=== PATIENT | male | born 1970 | race Caucasian/White ===

== ENCOUNTER 2020-01-17 02:14 | Outpatient (CLI) | payer BC, SELFPAY ==
[2020-01-17 18:46] LABS: SARS-CoV-2 RNA PCR Negative
== END 2020-01-17 02:15 | disposition home or self-care (01) ==
LOC: ANHCOVIDDT 02:15
PROVIDERS: PCP Internal Medicine; Visit Provider Internal Medicine Gastroenterology
DX: Z01.818 Encounter for other preprocedural examination (principal); Z20.828 Contact with and (suspected) exposure to other viral communicable diseases
CPT/HCPCS: 87635; C9803; U0003

== ENCOUNTER 2020-01-20 00:39 | Day surgery (SDC) | payer BC, SELFPAY ==
[2020-01-10 11:22] VITALS: BMI 35.2
[2020-01-20 07:11] VITALS: BP 157/95; PULSE 97; RESP 18; TEMP 36.6; O2SAT 97
[2020-01-20] MEDS: LACTATED RINGERS 1,000 ML 150 ML IV CONT (07:16)
--- NOTE | 2020-01-20 07:40 | P.PNAN_ITS ---
Anes - Initial Pre Proc Eval Procedure: Operation Date: 01/20/20 08:30 Proposed Procedures p Screening Colonoscopy - Eduard Bañuelos MD Date/Time: 01/20/20 07:40 Surgeon: Eduard Bañuelos MD Pre Op Diagnosis: Neoplasm Screening Patient Data Age: 49 Gender: M Height: 5 ft 8 in Weight: 107.1 kg Last Vital Signs Temp 36.6 C 01/20/20 07:11 Pulse 97 01/20/20 07:11 Resp 18 01/20/20 07:11 BP 157/95 H 01/20/20 07:11 Pulse Ox 97 01/20/20 07:11 Allergies Allergy/AdvReac Type Severity Reaction Status Date / Time No Known Allergies Allergy Verified 01/20/20 07:10 Home Medications Medication Instructions Recorded Confirmed Type atorvastatin 40 mg PO DAILY 01/10/20 01/10/20 History quinapril 20 mg PO DAILY 01/10/20 01/10/20 History sertraline 100 mg PO DAILY 01/10/20 01/10/20 History Patient hx anesthesia problems: none Family hx anesthesia problems: none [facility] Past Medical History Medical History (Updated 01/20/20 @ 07:43 by Randell Adam MD) Depression HTN (hypertension) Hyperlipidemia Obesity Social History Social History Smoking packs per day: 1 Smoking cigarettes per day: 20.0 Years smoked: 10 Smoking pack-years: 10.00 Smoking status: Former smoker Tobacco type: cigarettes Alcohol intake: current Drinks per week: 24 Substance use type: does not use Living arrangements: with family Spiritual care concerns: No Anes - Eval Final PreProcedure Day of Procedure 01/20/20 07:40 Patient weight: obese Heart: regular rate and rhythm Lungs: clear to auscultation Airway: Mallampati scale class II Neurological: alert and oriented Last oral intake: >/= 8 hours ASA classification: III Emergent: no Anesthetic plan: proceed Anesthesia type and monitoring: general GIVS and standard monitoring Informed Consent: The patient's anesthetic plan and its attendant risks and benefits were discussed with the patient/family/POA. Questions were solicited a nd answers provided to the satisfaction of the patient/family/POA.
--- NOTE | 2020-01-20 07:57 | P.CONGI_ITS ---
Assessment and Plan Assessment and plan (1) Encounter for screening colonoscopy: Code(s): Z12.11 - Encounter for screening for malignant neoplasm of colon Status: Acute Assessment and Plan: Patient appears to be at average risk for colon polyps. Because of patient's age screening colonoscopy will be performed at this time. GI Consult Note Consult date/time: 01/20/20 07:57 HPI: Eric Adorno II is a 49 year old male Seen in evaluation at the request of Dr. Ray Rivera. Patient presents for screening exam screening colonoscopy. Patient's current weight appetite bowel movements are normal. He denies abdominal pain. He has had no bleeding. His family history is noncon tributory. Review of Systems Review of Systems: All systems reviewed & are unremarkable except as noted in HPI and below PMFSH Past Medical History Medical History (Updated 01/20/20 @ 07:58 by Eduard Bañuelos MD) Depression HTN (hypertension) Hyperlipidemia Obesity Social History Social History Smoking packs per day: 1 Smoking cigarettes per day: 20.0 Years smoked: 10 Smoking pack-years: 10.00 Smoking status: Former smoker Tobacco type: cigarettes Alcohol intake: current Drinks per week: 24 Substance use type: does not use Living arrangements: with family Spiritual care concerns: No Meds Home Medications and Allergies Home Medications Medication Instructions Recorded Confirmed Type atorvastatin 40 mg PO DAILY 01/10/20 01/10/20 History quinapril 20 mg PO DAILY 01/10/20 01/10/20 History sertraline 100 mg PO DAILY 01/10/20 01/10/20 History Allergies Allergy/AdvReac Type Severity Reaction Status Date / Time No Known Allergies Allergy Verified 01/20/20 07:10 Vital Signs Vital Signs - 24 hr 01/20/20 07:11 Temperature 97.8 F Pulse Rate 97 Respiratory Rate 18 Blood Pressure 157/95 H Pulse Oximetry 97 Exam Narrative: Exam Narrative: Physical exam reveals patient to be alert. Vital signs stable. HEENT exam is unremarkable. Lungs are clear to auscultation and percussion. Heart is without murmur or extra sounds. Abdominal exam bowel sounds are present soft nontender with no organomegaly. Digital external rectal exam is normal.
[2020-01-20 08:49] VITALS: BP 120/82; PULSE 91; RESP 14; O2SAT 96
[2020-01-20 08:59] VITALS: BP 121/83; PULSE 90; RESP 17; O2SAT 96
[2020-01-20 09:09] VITALS: BP 136/95; PULSE 88; RESP 19; O2SAT 97
== END 2020-01-20 09:19 | disposition home or self-care (01) ==
PROVIDERS: PCP Internal Medicine; Visit Provider Internal Medicine Gastroenterology
PROC: 0DJD8ZZ Inspection of Lower Intestinal Tract, Via Natural or Artificial Opening Endoscopic (ICD-10-PCS; CPT 45378; principal; 2020-01-20 08:30)
DX: Z12.11 Encounter for screening for malignant neoplasm of colon (principal); D12.5 Benign neoplasm of sigmoid colon; F32.9 Major depressive disorder, single episode, unspecified; I10 Essential (primary) hypertension; E78.5 Hyperlipidemia, unspecified; E66.9 Obesity, unspecified; Z68.35 Body mass index [BMI] 35.0-35.9, adult; Z87.891 Personal history of nicotine dependence; K64.8 Other hemorrhoids
CPT/HCPCS: 45385; 88305; J2704; J7120

== ENCOUNTER → 2020-11-20 08:14 | Outpatient (CLI) | payer OTHER, BC, SELFPAY ==
--- NOTE | ~2020-11-20 | MR_ITS ---
EXAMINATION: MR lumbar spine wo con EXAM DATE: 11/20/2020 09:18 INDICATION: Radiculopathy, lumbar region chronic lbp. Right leg pain right toe tingling/numbness s/ p. TECHNIQUE: Multi-sequential, multiplanar MR images of the lumbar spine were obtained without contrast . Sagittal T1, T2, T2 fat saturation images. Axial T2 weighted images. There is no prior study for comparison. FINDINGS: There is mild to moderate disc disease L3-4 and L4-5, mild at the other levels. There is 2 mm retrolisthesis L3 on L4 and L4 on L5 and L5 on S1. The conus medullaris terminates at the L1/2 lev el and has normal signal intensity and morphology. There are no suspicious marrow signal abnormalitie s. Paraspinal soft tissue is unremarkable. Level by level evaluation: T12-L1: Disc does not extend beyond the endplate margin. Facet arthropathy: Mild. Neural foraminal stenosis: No stenosis. Central canal stenosis: No stenosis. L1-L2: Disc does not extend beyond the endplate margin. Facet arthropathy: Mild. Neural foraminal stenosis: No stenosis. Central canal stenosis: No stenosis. L2-L3: There is a minimal diffuse disc bulge. Facet arthropathy: Moderate . Ligamentum flavum enlargement. Neural foraminal stenosis: No stenosis. Central canal stenosis: No stenosis. L3-L4: There is a mild to moderate diffuse disc bulge. Facet arthropathy: Moderate. Neural foraminal stenosis: Mild to moderate bilateral. Central canal stenosis: Mild. L4-L5: There is a mild to moderate diffuse disc bulge with superimposed small right central extrusion , inferior migration into the lateral recess and right L5-S1 neural foramina. Facet arthropathy: Moderate. Neural foraminal stenosis: Moderate bilateral. Central canal stenosis: Moderate. L5-S1: There is a mild diffuse disc bulge. Facet arthropathy: Mild to moderate. Neural foraminal stenosis: At least moderate right, mild to moderate left. Central canal stenosis: Mild. IMPRESSION: 1. L4-5 moderate stenosis, and right central extrusion with inferior migration into the lateral rece ss and the right L5-S1 neural foramina. 2. Less spondylosis other levels. Reviewed, dictated and finalized at location B. IMPRESSION: 1. L4-5 moderate stenosis, and right central extrusion with inferior migration into the lateral recess and the right L5-S1 neural foramina. 2. Less spondylosis other levels.
== END ==
PROVIDERS: PCP Internal Medicine; Visit Provider Physician Assistant Medical
DX: M47.26 Other spondylosis with radiculopathy, lumbar region (principal)
CPT/HCPCS: 72148

== ENCOUNTER 2021-11-10 01:58 | Day surgery (SDC) | payer OTHER, SELFPAY ==
[2021-11-08 08:26] VITALS: BMI 37.2
--- NOTE | 2021-11-08 08:32 | PC.NURSE ---
Report to the Outpatient Waiting Room, entrance under the green pavilion located off [facility], at time 0600 on date 11/10/21. OR Time: 0730. Time changes happen often and if your time is changed the preop area will call you the afternoon before. - You and your visitor will be asked to self-screen and do not enter if you have any COVID symptoms. - Only one visitor and NO children visitors are allowed at this time. - The patient visitor is requested to leave or wait in car when not with patient due to restrictions. - A mask is required within the hospital. Patients may have clear liquids (water, carbonated beverages, clear teas, apple juice) until 3 hours prior to surgery with a maximum of 20 ounces. - No food from midnight until time of surgery Take the following medications with a SIP of water the morning of surgery: SERTRALINE, PREDNISONE Medications to discontinue per physician: N/A Date to take last dose: N/A Please no make-up, nail south korean, hairspray, perfume, deodorant, or body powder the day of surgery. No jewelry (including any body piercings) or valuables the day of surgery, leave them at home. Please take a shower or bath the night before, or the morning of, surgery with an antibacterial soap. Wear comfortable, loose fitting clothing. - Jewelry must be removed prior to entering the operating room. Rings and piercings that are not removed may be cut off. - The hospital will not accept responsibility for valuables. - Please leave all valuables, including medications, at home the day of surgery. If you are going home after surgery, a licensed driver material handler must drive you home. - NO public transportation without another adult. - We recommend that an adult stay with you for 24 hours following discharge. - We also recommend that you do not drive, make important decision, drink alcoholic beverages, or take any drugs that were not prescribed by your health care provider for at least 24 hours after your discharge time. Follow any additional instructions given to you from your surgeon. If you or anyone in your household have experienced Covid symptoms in the past week, please notify your surgeon or the nurse liaison at the phone number below for possible testing. Telephone instructions given to PT - ESME FLETCHER and asked if any additional questions and then verbalized understanding. Patient advised to call surgeon office or pre surgery nurse liaison [phone] if any additional questions.
--- NOTE | 2021-11-08 19:35 | PM.SD2 ---
Same Day Admit/Disch: HPI History of Present Illness Chief complaint: Periumbilical ventral hernia Narrative: Eric Adorno II is a 51 year old male with a bulge in the lower aspect umbilicus. He was seen in the office and noted to have a periumbilical ventral hernia. The skin is dusky and the hernia is too large and tender to reduce. He is taken to surgery now for repair with mesh. [facility], [facility] Past Medical History Medical History Depression HTN (hypertension) Hyperlipidemia Obesity Surgical History Surgical History H/O vasectomy Family History Family History Father Heart disease Hypertension Non-Hodgkin lymphoma Social History Social History (Updated 11/03/21 @ 10:09 by Coco Mitchell MA) Social History: caffeine use- 1 cup of coffee per day Smoking packs per day: 1 Smoking cigarettes per day: 20.0 Years smoked: 7 Smoking pack-years: 7.00 Smoking status: Former smoker Tobacco type: cigarettes Smoking end date: 02/06/01 Alcohol intake: current Drinks per week: 12 Alcohol use details: social use-Beer Substance use: never Substance use type: does not use Living arrangements: with family Additional living arrangements comments: Patient is 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 Gender identity (if verbalized by the patient): Male Sexual Orientation (if Verbalized by the Patient): Straight or Heterosexual Spiritual care concerns: No Same Day Admit/Disch: Med Pre-admit Medications Home Medications Medication Instructions Recorded Confirmed Type atorvastatin 40 mg tablet 40 mg PO DAILY 01/10/20 11/10/21 History quinapril 20 mg tablet 20 mg PO DAILY 01/10/20 11/10/21 History sertraline 100 mg tablet 100 mg PO DAILY 01/10/20 11/10/21 History hydrocodone 5 mg-acetaminophen 325 1 - 2 tablet PO Q6H PRN pain #15 11/10/21 Rx mg tablet tabs ketorolac 10 mg tablet 10 mg PO Q6H 4 days #16 tabs 11/10/21 Rx Exam Const: General: comfortable, no acute distress, alert and awake HENMT: Head: normocephalic and atraumatic Mouth: Yes Normal oral and palatal mucosa present Eyes: Conjunctivae: conjunctivae normal Pupils: Equal, round and reactive pupils present EOM: EOMs intact bilaterally Neck: Neck: normal visual inspection, no lymphadenopathy and nontender Resp: Effort & Inspection: normal respiratory effort Auscultation: clear to auscultation bilaterally Cardio: Rate: regular rate Rhythm: regular rhythm Heart sounds: no gallops, no murmurs and no rubs GI: Inspection: non-distended, obesity and visible herniation (below and at umbilicus, dusky skin) GI Palp: Yes Soft to palpation, Yes Tenderness to palpation present (GI), No Hepatomegaly present, No Splenomegaly present and Yes Hernia present (unable to reduce, tender) Skin: Lesions: no lesions Rashes: no rashes Neuro: General: no focal motor deficits and CN's II-XI intact bilaterally Cranial nerves: Yes Equal, round and reactive pupils present, Yes Bilaterally intact EOM present, Yes facial symmetry and Yes Midline tongue present Speech: normal speech Motor exam (neuro): 5/5 motor strength present throughout and Motor abnormalities not present Extrem: General: no clubbing, cyanosis or edema and edema Psych: Affect: normal affect Thought process: Normal thought process present Insight: Good insight present (Psych) DS: Summary Time Spent with Patient Time attestation: Total time spent providing and/or coordinating discharge services: DS: Admitting Diagnosis Discharge Date 11/10/21 Admitting Diagnosis periumbilical ventral hernia--plan to repair with underlay mesh. Procedure, risks, benefits discussed. He agrees to go ahead. obesity HTN DS: Discharge Diagnosis Discharge Diagnosis (1) Ventral hernia:
--- NOTE | 2021-11-09 14:04 | P.PNAN_ITS ---
Anes - Initial Pre Proc Eval Procedure: Operation Date: 11/10/21 07:30 Proposed Procedures p Repair of PeriUmbilical Ventral Hernia with Mesh - Derick Franklin MD Date/Time: 11/09/21 14:04 Surgeon: Derick rFanklin MD Pre Op Diagnosis: Periumbilical ventral hernia Patient Data Age: 51 Gender: M Height: 1.73 m Weight: 111.13 kg Allergies Allergy/AdvReac Type Severity Reaction Status Date / Time No Known Allergies Allergy Verified 11/10/21 06:39 Home Medications Medication Instructions Recorded Confirmed Type atorvastatin 40 mg tablet 40 mg PO DAILY 01/10/20 11/10/21 History quinapril 20 mg tablet 20 mg PO DAILY 01/10/20 11/10/21 History sertraline 100 mg tablet 100 mg PO DAILY 01/10/20 11/10/21 History Patient hx anesthesia problems: none Family hx anesthesia problems: none Results Review: All pre-operative results and documents have been reviewed as part of the pre- operative evaluation. [facility] Past Medical History Medical History Depression HTN (hypertension) Hyperlipidemia Obesity Surgical History Surgical History H/O vasectomy Family History Family History Father Heart disease Hypertension Non-Hodgkin lymphoma Social History Social History (Updated 11/03/21 @ 10:09 by Coco Mitchell MA) Social History: caffeine use- 1 cup of coffee per day Smoking packs per day: 1 Smoking cigarettes per day: 20.0 Years smoked: 7 Smoking pack-years: 7.00 Smoking status: Former smoker Tobacco type: cigarettes Smoking end date: 02/06/01 Alcohol intake: current Drinks per week: 12 Alcohol use details: social use-Beer Substance use: never Substance use type: does not use Living arrangements: with family Additional living arrangements comments: Patient is 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 Gender identity (if verbalized by the patient): Male Sexual Orientation (if Verbalized by the Patient): Straight or Heterosexual Spiritual care concerns: No Anes - Eval Final PreProcedure Day of Procedure 11/09/21 14:04 Patient weight: obese Heart: regular rate and rhythm Lungs: clear to auscultation Airway: Mallampati scale class II Neurological: alert and oriented Last oral intake: >/= 8 hours ASA classification: III Emergent: no Anesthetic plan: proceed Anesthesia type and monitoring: general ETT and standard monitoring Results Review: All pre-operative results and documents have been reviewed as part of the pre- operative evaluation. Informed Consent: The patient's anesthetic plan and its attendant risks and benefits were discussed with the patient/family/POA. Questions were solicited and answers provided to the satisfaction of the patient/family/POA.
[2021-11-10] VITALS (8 sets, daily range): BP systolic 129–155; BP diastolic 84–108; PULSE 81–98; RESP 12–18; TEMP 36.2–36.4; O2SAT 94–100
[2021-11-10] MEDS: LACTATED RINGERS 1,000 ML 30 ML IV CONT ×2 (06:29→08:52)
[2021-11-10] MEDS: ACETAMINOPHEN 500 MG TABLET 1000 MG PO (06:30)
[2021-11-10] MEDS: KETOROLAC 15 MG/ML VIAL (*BKC) IV PUSH (06:30)
--- NOTE | 2021-11-10 07:18 | WPDHPUPDATE1 ---
History and Physical Update Update Date/Time: 11/10/21 07:18 History and Physical has been reviewed, including an updated exam of the patient. There are NO changes in the patient's condition. Risks, benefits, and alternatives have been discussed and questions answered. Patient agrees to proceed with procedure.
[2021-11-10] MEDS: ceFAZolin 2 GM/D5W 50 ML 2 GM/50 ML BAG IVPB (07:28)
[2021-11-10] MEDS: BUPIVACAINE/EPINEPHRINE 0.25% 50 ML VIAL INFILTRATE (08:40)
--- NOTE | 2021-11-10 09:16 | P.OP_ITS ---
Procedure Note - Detailed Date of Procedure 11/10/21 Pre-op Diagnosis Periumbilical ventral hernia Post-op Diagnosis Other (Ventral and umbilical hernias) Procedure Performed Repair ventral and umbilical hernias with 8.[address] underlay mesh Surgeon Derick Franklin MD Ergonomic Specialist Servando Roy, SHIVA Anesthesia General and Local (0.25% Marcaine with epinephrine) Indications Patient noted to have a bulge at the umbilicus and below the umbilicus. It was too tender to reduce. It has been getting bigger. He is taken to surgery now for repair Findings Patient had a ventral hernia as well as a smaller umbilical hernia. Connecting the 2, the 8.6 cm mesh was required. Description of Procedure Patient was taken to surgery and anesthesia was introduced. The abdomen was prepped and draped. The proposed incision was drawn along the upper margin of the umbilicus. Local was infiltrated in the area of the anticipated incision and in the subcutaneous. Patient was having some difficulty with anesthesia under sedation. An LMA was attempted but would not seat well. He was converted then to the general with endotracheal anesthesia. We continued the surgery and dissected out the hernia and noted also umbilical hernia as well. The ventral hernia was actually a just a little to the right of the umbilical hernia. We dissected the hernia sacs from each. The umbilical skin was dissected free from the subcutaneous and from the hernia sac. The hernia sacs were discarded. I divided the fascial bridge between the 2 hernia defects. I placed a finger in the abdomen and checked for any adhesions. There were none. I infiltrated additional local in the fascia all around the hernia defect. An 8.6 cm mesh was then placed in the abdomen. Cranial and caudal transfascial sutures were placed with 0 Ethibond. The split sutures were placed in such a fashion that they would advance the edges of the hernia defect towards 1 another. After being tied down, the sutures had the desired effect. I then placed right and left lateral transfascial sutures to secure the mesh in the lateral aspect as well. I then closed the hernia defect with [id number] mattress sutures of 0 Ethibond. Each of these sutures also included a bit of mesh. The repair looked good. I then suture the umbilical skin back to the fascia. Some subcutaneous 3-0 Vicryl sutures were placed as well. The skin was approximated loosely with 3-0 and 4-0 subcuticular interrupted Vicryl suture. The skin was finally closed with a running 4-0 Monocryl skin suture. The wound was dressed with Exofin aleman rgical adhesive. The patient was then awakened and taken to recovery in good condition. Sponge needle counts were correct x2. Implants 8.[address] mesh patch Estimated Blood Loss -5.0 Drains No Packing No Pathology None sent Complications No immediate complications Condition Stable Disposition PACU [facility] Billing Surgery - Charge Forward: Surgery Billing (Repair ventral and umbilical hernias with mesh.)
== END 2021-11-10 10:50 | disposition home or self-care (01) ==
PROVIDERS: PCP Physician Assistant Medical; Visit Provider Surgery
PROC: (CPT 49560; principal; 2021-11-10 07:30)
DX: K43.9 Ventral hernia without obstruction or gangrene (principal); K42.9 Umbilical hernia without obstruction or gangrene; F32.A Depression, unspecified; E78.5 Hyperlipidemia, unspecified; Z87.891 Personal history of nicotine dependence; E66.9 Obesity, unspecified; Z68.37 Body mass index [BMI] 37.0-37.9, adult; I10 Essential (primary) hypertension
CPT/HCPCS: 49560; 49568; A9270; C1781; J0330; J0690; J1885; J2250; J2405; J2704; J3010; J7120

== ENCOUNTER 2022-05-11 08:44 | Outpatient (CLI) | payer OTHER, SELFPAY ==
--- NOTE | 2022-06-06 10:21 | WPDSLEEPSTUD ---
Sleep Study Date of Study: 05/11/22 Ordering Provider: Holly Berry PA-C Interpreting Physician: Julia Herman, DO Sleep Study Type: CPAP Titration Height: 1.73 m Weight: 112.491 kg Body Mass Index: 37.7 Neck Circumference (inches): 19 [place]: 12 Reason for Sleep Study RAÚL on PAP. Nocturnal oximetry showed hypoxemia. Needs new study prior to adding supplemental oxygen Sleep History The patient is a 52-year-old male with anxiety, depression, hypertension, hyperlipidemia, obesity, history of tobacco use and RAÚL on CPAP that had a sleep study ordered due to nocturnal hypoxemia while on CPAP. 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 He rarely awakens from sleep short of breath. He rarely awakens at night with heartburn, belching or cough. He constantly snores loudly enough others complain. He rarely has trouble sleeping when he has a cold. He rarely wakes up gasping for air throughout the night. He occasionally has breathing problems at night observed by himself or others. He denies sweating excessively at night. He denies having heart palpitations or irregular heartbeats during the night. He rarely falls asleep during the day and rarely falls asleep while driving. He denies sleep paralysis, cataplexy and hypnagogic / hypnopompic hallucinations. He denies having trouble at school or work due to sleepiness. He denies feeling afraid of going to sleep. He rarely has nightmares. He rarely remembers his dreams. He rarely has thoughts racing through his mind. He denies feeling sad or depressed. He occasionally has anxiety. He rarely has muscular tension. He rarely notices parts of his body jerk. He rarely kicks during the night. He denies having crawling and aching feelings in his legs and denies having leg pain during the night. He denies grinding his teeth during sleep and denies awakening with morning jaw pain. He is occasionally bothered by pain during the day but rarely awakened by pain during the night. He occasionally wakes up feeling stiff in the morning. He occasionally wakes up with sore achy muscles. He occasionally wakes up with pain in the neck, spine or other joints. He goes to bed at 8:30 p.m. on weekdays and at 9:00 p.m. on the weekends. It takes him 15 minutes to fall asleep. He will wake up once at most throughout the night to urinate and is able to fall back asleep within 10 minutes. He wakes up at 6:00 a.m. on both weekdays and weekends. He typically gets 7-9 hours of sleep per night. He will stay in bed for 5 minutes after waking up in the morning. He currently lives with his and children. He does not consume any caffeinated beverages within 2 hours of bedtime. He does not engage in physical exercise before bedtime. He will watch television before falling asleep. He denies taking naps in the afternoon or the evening. He drinks 2 cups of coffee per day. He quit smoking cigarettes 20 years ago. He consumes 6 alcoholic beverages per day. He denies recreational drug use. [facility] Past Medical History Medical History Anxiety Depression HTN (hypertension) Hyperlipidemia Hypoxemia associated with sleep Obesity RAÚL (obstructive sleep apnea) Surgical History Surgical History H/O vasectomy H/O ventral hernia repair Periumbilical Ventral Hernia repair w/ mesh on 11/10/21 Family History Family History Father Heart disease Hypertension Non-Hodgkin lymphoma Social History Social History Social History: caffeine use- 1 cup of coffee per day Smoking packs per day: 1 Smoking cigarettes per day: 20.0 Years smoked: 7 Smoking pack-years: 7.00 Smoking status: Former smoker Tobacco type: cigarettes Smoking end date: 02/06/01 Alcohol intake:
[2022-06-06 10:34] VITALS: BMI 37.7
== END 2022-05-12 06:46 | disposition home or self-care (01) ==
LOC: ANHCSM 08:45
PROVIDERS: PCP Physician Assistant Medical; Visit Provider Physician Assistant Medical
DX: G47.33 Obstructive sleep apnea (adult) (pediatric) (principal); G47.36 Sleep related hypoventilation in conditions classified elsewhere; I10 Essential (primary) hypertension; E66.9 Obesity, unspecified; Z68.37 Body mass index [BMI] 37.0-37.9, adult; Z87.891 Personal history of nicotine dependence
CPT/HCPCS: 95811

== ENCOUNTER 2024-07-15 08:21 | Outpatient (CLI) | payer OTHER, SELFPAY ==
--- NOTE | ~2024-07-15 | MR_ITS ---
MRI of the left knee Clinical history: Pain Technique: Coronal proton density and proton density-weighted images, sagittal proton-density and T2 fat-sat images, and axial proton-density fat-saturated images were acquired. Findings: Anterior and posterior cruciate ligaments are intact. Medial collateral ligament and the la teral collateral ligament complex are intact. Popliteus tendon is intact. There is complex tearing of the body segment, probably extending into the posterior horn and anterior horn. No lateral meniscal tear seen. There is mild chondromalacia of the patellofemoral compartment. There is extensive moderate chondroma lacia of the medial compartment. Articular cartilage in the lateral compartment is relatively well-pr eserved. There is minimal osteophyte formation. Extensor mechanism is intact. Small joint effusion present. Moderate Orlando's cyst present. Impression: Complex tearing of the body segment of the medial meniscus, with suspected extension to the anterior and posterior horns. Degenerative change, predominantly of the patellofemoral and medial compartments, as above. Small joint effusion and moderate Orlando's cyst. Reviewed, dictated and finalized at location . Impression: Complex tearing of the body segment of the medial meniscus, with suspected exte nsion to the anterior and posterior horns. Degenerative change, predominantly of the patellofemoral and medial compartment s, as above. Small joint effusion and moderate Orlando's cyst.
== END 2024-07-15 08:22 | disposition home or self-care (01) ==
PROVIDERS: PCP Physician Assistant Medical; Visit Provider Physician Assistant Medical
DX: S83.232A Complex tear of medial meniscus, current injury, left knee, initial encounter (principal); M17.12 Unilateral primary osteoarthritis, left knee; M25.462 Effusion, left knee; M71.22 Synovial cyst of popliteal space [Baker], left knee; X58.XXXA Exposure to other specified factors, initial encounter
CPT/HCPCS: 73721

== ENCOUNTER 2024-10-23 08:20 | Outpatient (CLI) | payer OTHER, SELFPAY ==
--- NOTE | ~2024-10-23 | US_ITS ---
ULTRASOUND ABDOMEN LIMITED (RIGHT UPPER QUADRANT) Clinical History: R74.01 - Elevation of levels of liver transaminase levels Comparison: None Technique: Right upper quadrant sonography Findings: Liver: Enlarged. Echogenic. Nodular contour. No intrahepatic biliary ductal dilatation. Normal hepatopedal flow main portal vein. Common Duct: Normal caliber. 3 mm. Gallbladder: No stones. No wall thickening. No pericholecystic fluid. Pancreas: Obscured by bowel gas. Retrohepatic IVC: Unremarkable. IMPRESSION: 1. Cirrhosis. 2. Hepatomegaly, with steatosis. Reviewed, dictated and finalized at location R.
== END 2024-10-23 08:21 | disposition home or self-care (01) ==
LOC: GOSHIMG 08:20
PROVIDERS: PCP Physician Assistant Medical; Visit Provider Physician Assistant Medical
DX: K74.60 Unspecified cirrhosis of liver (principal); K76.0 Fatty (change of) liver, not elsewhere classified; R16.0 Hepatomegaly, not elsewhere classified; R74.01 Elevation of levels of liver transaminase levels
CPT/HCPCS: 76705

== ENCOUNTER 2025-01-23 02:19 | Day surgery (SDC) | payer OTHER, SELFPAY ==
[2025-01-06 12:41] VITALS: BMI 37.2
[2025-01-23 08:56] VITALS: BP 115/79; PULSE 85; RESP 18; TEMP 36.2; O2SAT 98
[2025-01-23] MEDS: LACTATED RINGERS 1,000 ML 150 ML IV CONT (09:06)
[2025-01-23 10:34] VITALS: BP 110/76; PULSE 74; RESP 18; O2SAT 98
[2025-01-23 10:44] VITALS: BP 122/67; PULSE 70; RESP 18; O2SAT 99
[2025-01-23 10:54] VITALS: BP 132/84; PULSE 72; RESP 18; O2SAT 100
--- NOTE | 2025-01-23 15:16 | PM.IMHP2 ---
H&P: HPI History of Present Illness Date/Time: 01/23/25 15:16 Chief Complaint: History of colon polyps Narrative: The patient has a history of colonic polyps, the last colonoscopy was 5 years ago. Review of Systems Review of Systems: All systems reviewed & are unremarkable except as noted in HPI and below PMFSH Past Medical History Medical History (Updated 12/03/24 @ 09:45 by Holly Berry PA-C) Elevated cholesterol with elevated triglycerides Cirrhosis Elevated coronary artery calcium score 265 on 11/21/2022 Acute meniscal tear of left knee Hepatic steatosis FH: CAD (coronary artery disease) Dad CABG X 5 Restless leg syndrome PLM 46.4 (<15) Anxiety Hypoxemia associated with sleep RAÚL (obstructive sleep apnea) Depression Hyperlipidemia HTN (hypertension) Obesity Surgical History Surgical History H/O ventral hernia repair Periumbilical Ventral Hernia repair w/ mesh on 11/10/21 H/O vasectomy Family History Family History Father Heart disease Hypertension Non-Hodgkin lymphoma Social History Social History Social History: 08/14/24 Smoking packs per day: 1 Smoking cigarettes per day: 20.0 Years smoked: 7 Smoking pack-years: 7.00 Smoking status: Former smoker Tobacco type: cigarettes Smoking end date: 02/06/01 Alcohol intake: current Drinks per week: 5 Alcohol use details: social use-Beer Substance use: never Substance use type: does not use Last use: 2004 Lack of Transportation: No Lack of Food: Never True Current Housing: I Have Housing Concerned About Future Housing: No Difficulty Paying Gas/Electric Bills: No Difficulty Paying for Meds: No Currently Unemployed: No Education: High School Diploma/GED Difficulty w/ Childcare or Family Care: No Living arrangements: with family Additional living arrangements comments: Patient is Occupation/Education: occupation 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 Gender identity (if verbalized by the patient): Male Sexual Orientation (if Verbalized by the Patient): Straight or Heterosexual Spiritual care concerns: No Meds Home Medications and Allergies Home Medications ?Medication ?Instructions ?Recorded ?Confirmed ?Type atorvastatin 40 mg tablet 40 mg PO DAILY #90 tabs 09/02/22 01/23/25 Rx aspirin 81 mg chewable tablet 81 mg PO DAILY 06/03/24 01/23/25 History sertraline 100 mg tablet 100 mg PO DAILY #90 tabs 08/14/24 01/23/25 Rx lisinopril 20 mg tablet 20 mg PO DAILY #90 tabs 09/03/24 01/23/25 Rx Allergies Allergy/AdvReac Type Severity Reaction Status Date / Time losartan AdvReac Lightheaded Verified 01/23/25 08:47 Vital Signs Vital Signs - 24 hr 01/23/25 08:56 01/23/25 10:34 01/23/25 10:44 Temperature 97.1 F L Pulse Rate 85 74 70 Respiratory Rate 18 18 18 Blood Pressure 115/79 110/76 122/67 Pulse Oximetry 98 98 99 Oxygen Delivery Room Air Room Air Room Air 01/23/25 10:54 Temperature Pulse Rate 72 Respiratory Rate 18 Blood Pressure 132/84 Pulse Oximetry 100 Oxygen Delivery Room Air Exam Const: General: cooperative and healthy appearing Resp: Effort & Inspection: normal respiratory effort and able to speak in complete sentences Auscultation: clear to auscultation bilaterally Cardio: Rate: regular rate Rhythm: regular rhythm GI: Inspection: normal to inspection GI Palp: No No hepatosplenomegaly present Auscultation: normal bowel sounds Rectal Exam: deferred Skin: General skin exam: normal color Psych: Appearance: grossly normal Mental Status: mental status grossly normal Assessment and Plan Assessment and plan (1) Encounter for screening colonoscopy: Code(s): Z12.11 - Encounter for screening for malignant neoplasm of colon Status: Acute Assessment and Plan: The patient is deemed a good candidate for the procedure. Consent signed. Will proceed. Prior Studies I have reviewed the following patient records and this information was taken into consideration when formulating the assessment and plan.: previous labs, previous ER visits, previous hospitalizations and previous clinic visits
== END 2025-01-23 11:02 | disposition home or self-care (01) ==
PROVIDERS: PCP Physician Assistant Medical; Referring Provider Physician Assistant Medical; Visit Provider Internal Medicine Gastroenterology
PROC: 0DJD8ZZ Inspection of Lower Intestinal Tract, Via Natural or Artificial Opening Endoscopic (ICD-10-PCS; CPT 45378; principal; 2025-01-23 10:00)
DX: Z12.11 Encounter for screening for malignant neoplasm of colon (principal); K57.30 Diverticulosis of large intestine without perforation or abscess without bleeding; Z86.0100 Personal history of colon polyps, unspecified; Z87.891 Personal history of nicotine dependence
CPT/HCPCS: 45378; J2704; J7120